=== PATIENT | female | born 1975 | race Caucasian/White ===

== ENCOUNTER 2017-01-02 20:05 | Emergency (ER) | payer SELFPAY ==
[~2017-01-02] VITALS: Ht 160 cm; Wt 62.0 kg
[2017-01-02 20:08] VITALS: BP 165/110; PULSE 87; RESP 16; TEMP 99.5; O2SAT 96
[2017-01-02 20:39] LABS: BLOOD, URINE LARGE (NEG); GLUCOSE,URINE NEG (NEG); KETONE, URINE NEG (NEG)
--- NOTE | 2017-01-02 20:41 | PD ---
HPI Chief Complaint: Complaint Time Seen by Provider: 20:33 Travel History International Travel<30 days: No Contact w/Intl Traveler<30days: No Traveled to known affect area: No History of Present Illness HPI This patient complains of dysuria and urinary frequency. She has some low back pain and subjective fever. He is concerned about having urinary infection. Symptoms severity is moderate. PFSH Past Medical History ?: Not LMP: NOW Social History Alcohol Use: No Tobacco Use: No Substance Use: No Allergies-Medications (Allergen,Severity, Reaction): Coded Allergies: No Known Allergies (Unverified , 01/02/17) Reported Meds & Prescriptions Reported Meds & Active Scripts Active No Active Prescriptions or Reported Medications Review of Systems General / Constitutional: Positive: Fever Cardiovascular: No: Chest Pain or Discomfort Respiratory: No: Cough Gastrointestinal: No: Vomiting Physical Exam Narrative GASTROINTESTINAL: Abdomen soft, non-tender, nondistended. Positive bowel sounds. No hepato-splenomegaly, or palpable masses. No guarding. SKIN: Inspection shows no rash or ulcers. Palpation shows no induration or nodules. Psych: Normal mood and affect. Normal insight and judgment. Data Data Last Documented VS Vital Signs Date Time Temp Pulse Resp B/P Pulse Ox O2 Delivery O2 Flow Rate FiO2 01/02/17 20:08 99.5 87 16 165/110 96 Orders Urinalysis - C+S If Indicated (01/02/17 20:09) Urine Culture (01/02/17 20:34) Labs Laboratory Tests Test 01/02/17 20:34 Urine Collection Type CLEAN CATCH Urine Color MARQUIS Urine Turbidity MOD Urine pH 6.0 Urine Specific [place] 1.013 Urine Protein 30 mg/dL Urine Glucose (UA) NEG mg/dL Urine Ketones NEG mg/dL Urine Occult Blood LARGE Urine Nitrite POS Urine Bilirubin NEG Urine Leukocyte Esterase MOD Urine RBC 25-49 /hpf Urine WBC 25-49 /hpf Urine WBC Clumps MANY Urine Squamous Epithelial 0-5 /hpf Cells Urine Bacteria FEW /hpf Urine Mucus OCC /lpf Microscopic Urinalysis Comment CULTURE INDICATED MDM Medical Decision Making Medical Screen Exam Complete: Yes Emergency Medical Condition: Yes Medical Record Reviewed: Yes Differential Diagnosis UTI, pyelonephritis, cystitis Narrative Course I have reviewed the patient's electronic medical record. Urinalysis is consistent with infection. Cipro prescribed. Diagnosis Primary Impression: Acute cystitis Qualified Code: N30.01 - Acute cystitis with hematuria Additional Instructions: The patient was advised to follow up with their physician and return if they worsen. Med/Other Pt SpecificInfo: Prescription(s) given Scripts Ciprofloxacin (Cipro)500 Mg Kaz511 Mg PO BID #10 TAB Ref 0 Prov:Jaun Alberto MD 01/02/17 Disposition: 01 DISCHARGE HOME Condition: Stable Jaun Alberto MD Jan 02, 2017 20:41
[2017-01-02 20:45] LABS: NITRITE,URINE POS (NEG)
[2017-01-02 20:46] LABS: METHOD OF COLLECTION CLEAN CATCH; URINE COLOR AMBER (YELLW/STRAW)
[2017-01-02 20:47] LABS: BACTERIA, URINE FEW /hpf; MUCUS URINE OCC /lpf (OCC); SQUAMOUS EPITHELIAL CELL URINE 0-5 /hpf (0-5)
[2017-01-02 20:48] LABS: COMMENT (UR) CULTURE INDICATED; CULTURE IF INDICATED CULTURE INDICATED
[2017-01-02] MEDS ORDERED: CIPR-9 PO (20:51)
== END 2017-01-02 20:15 | disposition home or self-care (01) ==
LOC: PHED 20:05
DX: N30.01 Acute cystitis with hematuria (principal); B96.20 Unspecified Escherichia coli [E. coli] as the cause of diseases classified elsewhere
CPT/HCPCS: 81001; 87077; 87086; 87186; 99283

== ENCOUNTER 2018-02-22 15:51 | Inpatient (IN) | payer SELFPAY ==
[2018-02-22] VITALS (23 sets, daily range): BP systolic 137–179; BP diastolic 81–107; PULSE 40–50; RESP 8–16; TEMP 97.6–97.7; O2SAT 95–100
[~2018-02-22 15:51] MED LIST: CIPR-9 PO
[2018-02-22] MEDS ORDERED: SUCCINYLCHOLINE CHLORIDE 200 MG/10 ML VIAL ONE (16:13)
[2018-02-22] MEDS ORDERED: ETOMIDATE 40 MG/20 ML VIAL ONE (16:13)
[2018-02-22] MEDS ORDERED: SODIUM CHLOR 0.9% 1000 ML INJ 1,000 ML IV ONE (16:20)
--- NOTE | 2018-02-22 16:29 | PD ---
HPI Chief Complaint: Altered Mental Status Time Seen by Provider: 16:04 Travel History International Travel<30 days: No Contact w/Intl Traveler<30days: No Traveled to known affect area: No History of Present Illness HPI The patient was seen and examined in the presence of the nurse. This patient is brought in by her boyfriend. She is unresponsive. She can provide no history or review of systems. Boyfriend does not know what happened to her. She has pinpoint pupils and respiratory rate of 6 with periods of apnea. She has visible track kirby on her arms. Boyfriend says there is no way she could' ve overdosed. She has taken recreational Lortab on occasion but he doesn't think she overdosed. She has some type of chronic pain syndrome. She also has psoriasis. Duration one hour. PFSH Past Medical History Diminished Hearing: No Tubal Ligation: Yes Past Surgical History Other Surgery: Yes (BREAST AGMENTATION ) Social History Alcohol Use: No Tobacco Use: No Substance Use: No Allergies-Medications (Allergen,Severity, Reaction): Coded Allergies: No Known Allergies (Unverified Adverse Reaction, Unknown, 02/22/18) Reported Meds & Prescriptions Reported Meds & Active Scripts Active No Active Prescriptions or Reported Medications Review of Systems ROS Limitations: Clinical Condition, Altered Mental Status, Unresponsive Physical Exam Narrative GENERAL: Well-nourished, well-developed patient who is unresponsive and having periods of apnea . SKIN: Focused skin assessment reveals linear kirby on the arms that look like track kriby. Skin is Warm and dry. HEAD: Atraumatic. Normocephalic. EYES: Pupils equal and pinpoint. No scleral icterus. No injection or drainage. ENT: No nasal bleeding or discharge. Mucous membranes pink and moist. NECK: Trachea midline. No JVD. CARDIOVASCULAR: Regular rate and rhythm. No murmur appreciated. Bradycardic at 45 RESPIRATORY: No accessory muscle use. Clear to auscultation. Breath sounds equal bilaterally. GASTROINTESTINAL: Abdomen soft, non-tender, nondistended. Hepatic and splenic margins not palpable. MUSCULOSKELETAL: No obvious deformities. No clubbing. No cyanosis. No edema. NEUROLOGICAL: Patient is unresponsive. She has no useful gag reflex. Impossible to test motor or sensory exam given her limited participation. She is nonverbal. PSYCHIATRIC: Impossible to test mood and affect; insight and judgment poor . Data Data Last Documented VS Vital Signs Date Time Temp Pulse Resp B/P (MAP) Pulse Ox O2 Delivery O2 Flow Rate FiO2 02/22/18 16:45 48 14 160/88 (112) 100 02/22/18 16:10 97.6 02/22/18 16:05 40 Orders Orders Etomidate Inj (Amidate Inj) (02/22/18 16:13) Succinylcholine Inj (Quelicin Inj) (02/22/18 16:13) Electrocardiogram (02/22/18 16:20) Complete Blood Count With Diff (02/22/18 16:20) Comprehensive Metabolic Panel (02/22/18 16:20) Urinalysis - C+S If Indicated (02/22/18 16:20) Chest, Single Ap (02/22/18 16:20) Ct Brain W/O Iv Contrast(Rout) (02/22/18 16:20) Arterial Blood Gas (Abg) (02/22/18 16:20) Iv Access Insert/Monitor (02/22/18 16:20) Ecg Monitoring (02/22/18 16:20) Oximetry (02/22/18 16:20) Veda-Gastric Tube Insert/Mon (02/22/18 16:20) Urinary Catheter Insert/Apply (02/22/18 16:20) Sodium Chloride 0.9% Flush (Ns Flush) (02/22/18 16:30) Sodium Chlor 0.9% 1000 Ml Inj (Ns 1000 M (02/22/18 16:20) Restraints Non-Violent ELIZABETH.Q3H (02/22/18 16:20) Drug Screen, Random Urine (02/22/18 16:20) Alcohol (Ethanol) (02/22/18 16:20) Salicylates (Aspirin) (02/22/18 16:20) Tylenol (Acetaminophen) (02/22/18 16:20) Propofol 1000 Mg/100 Ml Inj (Diprivan 10 (02/22/18 16:30) Ed Urine Pregnancytest Poc (02/22/18 16:20) Etomidate Inj (Amidate Inj) (02/22/18 16:30) Admit Order (Ed Use Only) (02/22/18 16:58) Labs Laboratory Tests Test 02/22/18 16:25 3/28/18 16:49 White Blood Count 5.9 TH/MM3 Red Blood Count 4.51 MIL/MM3 Hemoglobin 13.4 GM/DL Hematocrit 41.6 % Mean Corpuscular Volume 92.1 FL Mean Corpuscular Hemoglobin 29.6 PG Mean Corpuscular Hemoglobin Concent 32.1 % Red Cell Distribution Width 13.5 % Platelet Count 196 TH/MM3 Mean Platelet Volume 9.3 FL Neutrophils (%) (Auto) 61.6 % Lymphocytes (%) (Auto) 21.9 % Monocytes (%) (Auto) 14.5 % Eosinophils (%) (Auto) 1.5 % Basophils (%) (Auto) 0.5 % Neutrophils # (Auto) 3.7 TH/MM3 Lymphocytes # (Auto) 1.3 TH/MM3 Monocytes # (Auto) 0.9 TH/MM3 Eosinophils # (Auto) 0.1 TH/MM3 Basophils # (Auto) 0.0 TH/MM3 CBC Comment DIFF FINAL Differential Comment Urine Collection Type VOIDED Urine Color YELLOW Urine Turbidity CLEAR Urine pH 6.0 Urine Specific [place] 1.020 Urine Protein NEG mg/dL Urine Glucose (UA) NEG mg/dL Urine Ketones NEG mg/dL Urine Occult Blood NEG Urine Nitrite NEG Urine Bilirubin NEG Urine Urobilinogen 0.2 MG/DL Urine Leukocyte Esterase NEG Urine Squamous Epithelial Cells 0-3 /hpf Urine Mucus OCC /lpf Microscopic Urinalysis Comment CULT NOT INDICATED Blood Urea Nitrogen 7 MG/DL Creatinine 0.59 MG/DL Random Glucose 107 MG/DL Total Protein 8.1 GM/DL Albumin 3.3 GM/DL Calcium Level 8.6 MG/DL Alkaline Phosphatase 90 U/L Aspartate Amino Transf (AST/SGOT) 11 U/L Alanine Aminotransferase (ALT/SGPT) 15 U/L Total Bilirubin 0.4 MG/DL Sodium Level 142 MEQ/L Potassium Level 3.8 MEQ/L Chloride Level 112 MEQ/L Carbon Dioxide Level 26.7 MEQ/L Anion Gap 3 MEQ/L Estimat Glomerular Filtration Rate 111 ML/MIN Salicylates Level LESS THAN 1.7 MG/DL Urine Opiates Screen POS Acetaminophen Level LESS THAN 2.0 MCG/ML Urine Barbiturates Screen NEG Urine Amphetamines Screen NEG Urine Benzodiazepines Screen NEG Urine Cocaine Screen NEG Urine Cannabinoids Screen POS Ethyl Alcohol Level LESS THAN 3 MG/DL Blood Gas Puncture Site RT RADIAL Blood Gas Patient Temperature 37.0 Blood Gas HCO3 22 mmol/L Blood Gas Base Excess -3.1 mmol/L Blood Gas Oxygen Saturation 96 % Arterial Blood pH 7.34 Arterial Blood Partial Pressure CO2 41 mmHg Arterial Blood Partial Pressure O2 197 mmHg Arterial Blood Oxygen Content 17.9 Vol % Arterial Blood Carboxyhemoglobin 1.9 % Arterial Blood Methemoglobin 1.2 % Blood Gas Hemoglobin 12.9 G/DL Oxygen Delivery Device VENTILATOR Blood Gas Ventilator Setting 14/500/PEEP 5 Blood Gas Inspired Oxygen 40 % MDM Medical Decision Making Medical Screen Exam Complete: Yes Emergency Medical Condition: Yes Medical Record Reviewed: Yes Differential Diagnosis Narcotic overdose, accidental ingestion, intracranial hemorrhage Narrative Course I have reviewed the patient's electronic medical record. Patient was seen here last year for cystitis This patient arrives critically ill. She is apneic and bradycardic and unresponsive I suspect based on her pinpoint pupils and track kirby that she is a narcotic overdose She requires emergent intubation to control her airway and provide breaths INTUBATION: The patient was put in optimal position for the procedure. Rapid sequence intubation was initiated by me using 20 milligrams of etomidate IV. The patient was intubated with a 7.5 cuffed endotracheal tube. Tube placement was confirmed by visualization of the tube and balloon passing through the cords , capnometry and subsequent chest x-ray. Breath sounds were equal and well aerated bilaterally postintubation. No breath sounds over stomach. Patient tolerated procedure well. After intubation saturations are 100% and the pulse immediately went up to 75. I've ordered lab and urine studies and brain imaging X-ray shows good tube placement without pneumothorax CBC and metabolic profiles reasonably normal Urine is clean Alcohol negative Tox screen positive for narcotic and marijuana On recheck patient's blood pressure remains good I reviewed with the ladle repairman who will admit to intensive care on ventilator Critical Care Narrative Aggregate critical care time was 78 minutes. Time to perform other separately billable procedures was not included in the critical care time. My time did not include minutes spent treating any other patients simultaneously or on activities that did not directly contribute to the patient's treatment. The services I provided to this patient were to treat and/or prevent clinically significant deterioration that could result in: Loss of airway, aspiration, cardiopulmonary arrest, hypoxemic brain injury I provided critical care services requiring my management, as noted below: Chart data review, documentation time, medication orders and management, vital sign assessments/reviewing monitor data, ordering and reviewing lab tests, ordering and interpreting/reviewing x-rays and diagnostic studies, care of the patient and discussion of the patient with the admitting physicians. Diagnosis Primary Impression: Unresponsive state Additional Impressions: Airway compromise Narcotic overdose Qualified Codes: T40.604A - Poisoning by unspecified narcotics, undetermined, initial encounter Admitting Information Admitting Physician Requests: Admit Scripts No Active Prescriptions or Reported Meds Jaun Alberto MD Feb 22, 2018 16:29
[2018-02-22] MEDS ORDERED: SODIUM CHLORIDE 0.9% FLUSH 10 ML FLUSH IVF PRN (16:30)
[2018-02-22] MEDS ORDERED: ETOMIDATE 20 MG/10 ML VIAL IV PUSH ONE (16:30)
[2018-02-22 16:41] LABS: AUTOMATED NEUTROPHIL # 3.7 TH/MM3 (1.8-7.7); BASOPHIL % 0.5 % (0.0-2.0); EOSINOPHIL # 0.1 TH/MM3 (0-0.4); EOSINOPHIL % 1.5 % (0.0-4.0); HEMATOCRIT 41.6 % (35.0-46.0); HEMOGLOBIN 13.4 GM/DL (11.6-15.3); LYMPH % 21.9 % (9.0-44.0); LYMPHOCYTE # 1.3 TH/MM3 (1.0-4.8); MEAN CELL VOLUME 92.1 FL (80.0-100.0); MEAN CORPUSCULAR HEMOGLOBIN 29.6 PG (27.0-34.0); MEAN CORPUSCULAR HGB CONC 32.1 % (32.0-36.0); MEAN PLATELET VOLUME 9.3 FL (7.0-11.0); MONO % 14.5 % (0.0-8.0); MONOCYTE # 0.9 TH/MM3 (0-0.9); NEUT % 61.6 % (16.0-70.0); PLATELET COUNT 196 TH/MM3 (150-450); RED BLOOD COUNT 4.51 MIL/MM3 (4.00-5.30); RED CELL DISTRIBUTION WIDTH 13.5 % (11.6-17.2); WHITE BLOOD COUNT 5.9 TH/MM3 (4.0-11.0)
[2018-02-22 16:42] LABS: BILIRUBIN, URINE NEG (NEG); BLOOD, URINE NEG (NEG); GLUCOSE,URINE NEG (NEG); KETONE, URINE NEG (NEG); NITRITE,URINE NEG (NEG); URINE COLOR YELLOW (YELLW/STRAW); URINE LEUKOCYTE ESTERASE NEG (NEG)
--- NOTE | 2018-02-22 16:43 | RADRPT ---
EXAM DATE/TIME: 02/22/2018 16:24 [facility] COMPARISON: No previous studies available for comparison. INDICATIONS : Post intubation MEDICAL HISTORY : Unobtainable SURGICAL HISTORY : Unobtainable ENCOUNTER: Initial ACUITY: 1 day PAIN SCORE: Non-responsive. LOCATION: Bilateral chest FINDINGS: A single view of the chest demonstrates the lungs to be symmetrically aerated without evidence of mas s, infiltrate or effusion. The endotracheal tube appears to be in good position. There is no pneumot horax. The heart size is mildly enlarged.. Osseous structures are intact. CONCLUSION: 1. ET tube in good position. 2. No pneumothorax. Eyal Gilbert MD on February 22, 2018 at 16:40 Board Certified Radiologist. This report was verified electronically.
[2018-02-22] MEDS: PROPOFOL 1000 MG/100 ML INJ 100 ML IV PRN ×2 (16:49→23:57)
[2018-02-22 16:50] LABS: CHLORIDE 112 MEQ/L (98-107); SODIUM (NA) 142 MEQ/L (136-145)
[2018-02-22 16:53] LABS: CALCIUM 8.6 MG/DL (8.5-10.1)
[2018-02-22 16:54] LABS: ALBUMIN 3.3 GM/DL (3.4-5.0); BICARBONATE 26.7 MEQ/L (21.0-32.0); BLOOD UREA NITROGEN 7 MG/DL (7-18); GLUCOSE,RANDOM 107 MG/DL (74-106)
[2018-02-22 16:56] LABS: MUCUS URINE OCC /lpf (OCC); SQUAMOUS EPITHELIAL CELL URINE 0-3 /hpf (0-5)
[2018-02-22 16:57] LABS: ALT (GPT) 15 U/L (10-53); AST (GOT) 11 U/L (15-37); CREATININE 0.59 MG/DL (0.50-1.00); GLOMERULAR FILTRATION RATE 111 ML/MIN (>89)
[2018-02-22 16:58] LABS: TOTAL BILIRUBIN ADULT 0.4 MG/DL (0.2-1.0)
[2018-02-22 16:59] LABS: TOTAL PROTEIN 8.1 GM/DL (6.4-8.2)
[2018-02-22 17:00] LABS: ALKALINE PHOSPHATASE 90 U/L (45-117)
[2018-02-22] MEDS ORDERED: POTASSIUM CHLOR 40 MEQ PREMIX 100 ML IV PRN ×2 (17:45)
[2018-02-22] MEDS ORDERED: POTASSIUM PHOSPHATE MONOBASIC 500 MG TAB PO/TUBE PRN (17:45)
[2018-02-22] MEDS ORDERED: MULTIVITAMIN INJ 10 ML, THIAMINE INJ 100 MG, FOLIC ACID INJ 1 MG in SODIUM CHLOR 0.45% ... IV ONE ×2 (17:45→20:00)
[2018-02-22] MEDS ORDERED: hydrALAZINE HCL 20 MG/ML VIAL IV PUSH PRN (17:45)
[2018-02-22] MEDS ORDERED: MAGNESIUM OXIDE 400 MG TAB PO PRN (17:45)
[2018-02-22] MEDS ORDERED: MAGNESIUM HYDROXIDE SUSP 30 ML CUP PO PRN (17:45)
[2018-02-22] MEDS ORDERED: DEXTROSE 50% IN WATER 50 ML VIAL(D50) IV PUSH PRN (17:45)
[2018-02-22] MEDS ORDERED: CHLORHEXIDINE GLUCONATE 2 % 1 PACK (2 CLOTHS) TOP PRN (17:45)
[2018-02-22] MEDS ORDERED: BISACODYL 10 MG SUPP RECTAL PRN (17:45)
[2018-02-22] MEDS ORDERED: POTASSIUM PHOSPHATE MONOBASIC 500 MG TAB PO PRN (17:45)
[2018-02-22] MEDS ORDERED: POTASSIUM CHLORIDE 25 MEQ EFFERVESCENT TAB PO PRN (17:45)
[2018-02-22] MEDS ORDERED: MISCELLANEOUS NURSING INFORMATION XX SCH (17:45)
[2018-02-22] MEDS ORDERED: POTASSIUM CHLOR 20 MEQ PREMIX 100 ML IV PRN ×2 (17:45)
[2018-02-22] MEDS ORDERED: ONDANSETRON HCL 4 MG/2 ML VIAL IV PUSH PRN (17:45)
[2018-02-22] MEDS ORDERED: MAGNESIUM SULFATE INJ 2 GM in SODIUM CHLORIDE 0.9% INJ 96 ML IV PRN (17:45)
[2018-02-22] MEDS ORDERED: RESP: ALBUTEROL 2.5 MG/IPRATROPIUM 0.5 MG NEB (PRN) INH (17:45)
[2018-02-22] MEDS ORDERED: SODIUM PHOSPHATE INJ 30 MMOL in SODIUM CHLOR 0.9% 250 ML INJ 240 ML IV PRN (17:45)
[2018-02-22] MEDS ORDERED: LABETALOL HCL 100 MG/20 ML VIAL IV PUSH PRN (17:45)
[2018-02-22] MEDS ORDERED: POTASSIUM PHOSPHATE INJ 30 MMOL in SODIUM CHLOR 0.9% 250 ML INJ 250 ML IV PRN (17:45)
[2018-02-22] MEDS ORDERED: fentaNYL DRIP 250 ML IV PRN (17:45)
[2018-02-22] MEDS ORDERED: SENNOSIDES 8.6 MG TAB PO PRN (17:45)
[2018-02-22] MEDS ORDERED: MAGNESIUM SULFATE INJ 4 GM in SODIUM CHLORIDE 0.9% INJ 92 ML IV PRN (17:45)
[2018-02-22] MEDS ORDERED: LACTULOSE SYRUP 20 GM/30 ML CUP PO PRN (17:45)
--- NOTE | 2018-02-22 17:46 | HHI.HP ---
HPI Service Critical Care Medicine Primary Care Physician No Primary Care Physician Admission Diagnosis unresponsive,loss of airway,narcotic OD Diagnosis: Chief Complaint: altered mental status Travel History International Travel<30 Days: No Contact w/Intl Traveler <30 Da: No Traveled to Known Affected Are: No History of Present Illness This is a 42-year-old female with an unremarkable past medical history who presents with her boyfriend for severe altered mental status. When I evaluated the patient, along with the emergency department evaluated patient, the patient was obtunded and unable to answer additional questions, the remainder of the history is provided by the boyfriend. Per the boyfriend, she does not have any medical problems, except for an occasional anxiety, and except for an occasional muscle or joint pain for which she takes "recreational Lortab ". He also states that when she gets very anxious she also takes "recreational Xanax ". He states that yesterday she was smoking marijuana with him when she became acutely paranoid and agitated, but over a few hours became normal again. Today , he found her very altered and sought medical attention. In the emergency department, she was not protecting her airway, she was acutely obtunded and was emergently intubated by the emergency room physician. Urine drug screen is positive for cannabinoids and opiates. Her pupils are pinpoint. Her respiratory rate was less than 6. Her heart rate is less than 50. Her boyfriend vehemently denies any other toxic ingestion or illicit drug use. ROS is unobtainable. Review of Systems ROS Limitations: Clinical Condition, Intoxication, Intubated, Altered Mental Status, Unresponsive Past Family Social History Allergies: Coded Allergies: No Known Allergies (Unverified Adverse Reaction, Unknown, 02/22/18) Past Medical History Per her boyfriend, no significant past medical history Past Surgical History Her boyfriend, breast augmentation Reported Medications per her boyfriend: "recreational lortab" occasionally "recreational xanax" occasionally Active Ordered Medications See MAR Family History Unknown unobtainable secondary to clinical condition the patient Social History Per the boyfriend, negative for tobacco, positive for recreational marijuana use , positive for illicit opiates and benzo use. Physical Exam Vital Signs Vital Signs Date Time Temp Pulse Resp B/P (MAP) Pulse Ox O2 Delivery O2 Flow Rate FiO2 02/22/18 17:03 43 14 163/99 (120) 100 Ventilator 02/22/18 17:00 40 02/22/18 16:20 99 02/22/18 16:10 97.6 46 8 140/81 (100) 95 02/22/18 16:05 100 40 Physical Exam GENERAL: Middle-age appearing female, lying in bed, obtunded, intubated, unresponsive HEENT: Normocephalic. Atraumatic. Pupils 1 mm, equal, round, reactive. Mucous membranes are dry NECK: Trachea is midline. There is no JVD. CHEST: Equal chest rise. PRVC. 40% FiO2. CARDIOVASCULAR: Bradycardic rate in the 40s, regular rhythm. Blood pressures 160s over 90s. Appears sinus. ABDOMEN: Soft, nontender, nondistended. No guarding. MUSCULOSKELETAL: Pulses 2+. No peripheral edema. NEUROLOGICAL: RASS -3. Positive cough. Positive gag. Positive corneals. On my evaluation, the patient acutely sat up with a RASS +1, but remained CAM +. Did not follow commands. Briskly purposeful. Moves all extremities. Laboratory Laboratory Tests Test 02/22/18 16:25 02/22/18 16:49 White Blood Count 5.9 Red Blood Count 4.51 Hemoglobin 13.4 Hematocrit 41.6 Mean Corpuscular Volume 92.1 Mean Corpuscular Hemoglobin 29.6 Mean Corpuscular Hemoglobin Concent 32.1 Red Cell Distribution Width 13.5 Platelet Count 196 Mean Platelet Volume 9.3 Neutrophils (%) (Auto) 61.6 Lymphocytes (%) (Auto) 21.9 Monocytes (%) (Auto) 14.5 Eosinophils (%) (Auto) 1.5 Basophils (%) (Auto) 0.5 Neutrophils # (Auto) 3.7 Lymphocytes # (Auto) 1.3 Monocytes # (Auto) 0.9 Eosinophils # (Auto) 0.1 Basophils # (Auto) 0.0 CBC Comment DIFF FINAL Differential Comment Urine Collection Type VOIDED Urine Color YELLOW Urine Turbidity CLEAR Urine pH 6.0 Urine Specific [place] 1.020 Urine Protein NEG Urine Glucose (UA) NEG Urine Ketones NEG Urine Occult Blood NEG Urine Nitrite NEG Urine Bilirubin NEG Urine Urobilinogen 0.2 Urine Leukocyte Esterase NEG Urine Squamous Epithelial Cells 0-3 Urine Mucus OCC Microscopic Urinalysis Comment CULT NOT INDICATED Blood Urea Nitrogen 7 Creatinine 0.59 Random Glucose 107 Total Protein 8.1 Albumin 3.3 Calcium Level 8.6 Alkaline Phosphatase 90 Aspartate Amino Transf (AST/SGOT) 11 Alanine Aminotransferase (ALT/SGPT) 15 Total Bilirubin 0.4 Sodium Level 142 Potassium Level 3.8 Chloride Level 112 Carbon Dioxide Level 26.7 Anion Gap 3 Estimat Glomerular Filtration Rate 111 Urine Opiates Screen POS Urine Barbiturates Screen NEG Urine Amphetamines Screen NEG Urine Benzodiazepines Screen NEG Urine Cocaine Screen NEG Urine Cannabinoids Screen POS Ethyl Alcohol Level LESS THAN 3 Blood Gas Puncture Site RT RADIAL Blood Gas Patient Temperature 37.0 Blood Gas HCO3 22 Blood Gas Base Excess -3.1 Blood Gas Oxygen Saturation 96 Arterial Blood pH 7.34 Arterial Blood Partial Pressure CO2 41 Arterial Blood Partial Pressure O2 197 Arterial Blood Oxygen Content 17.9 Arterial Blood Carboxyhemoglobin 1.9 Arterial Blood Methemoglobin 1.2 Blood Gas Hemoglobin 12.9 Oxygen Delivery Device VENTILATOR Blood Gas Ventilator Setting 14/500/PEEP 5 Blood Gas Inspired Oxygen 40 Result Diagram: 02/22/18 1625 02/22/18 1625 Imaging Last Impressions Head CT 02/22/18 1620 Signed Impressions: Service Date/Time: Thursday, February 22, 2018 17:59 - CONCLUSION: Normal examination for a patient of this age. Eyal Gilbert MD Chest X-Ray 02/22/181619 Signed Impressions: Service Date/Time: Thursday, February 22, 2018 16:24 - CONCLUSION: 1. ET tube in good position. 2. No pneumothorax. MD Kayleigh Gann VTE Risk Assessment Caprini VTE Risk Assessment: Mod/High Risk (score >= 2) Caprini Risk Assessment Model Point Value = 1 Point Value = 2 Point Value = 3 Point Value = 5 Age 41-60 Minor surgery BMI > 25 kg/m2 Swollen legs Varicose veins or History of unexplained or recurrent spontaneous Oral contraceptives or hormone replacement Sepsis (< 1 month) Serious lung disease, including pneumonia (< 1 month) Abnormal pulmonary function Acute myocardial infarction Congestive heart failure (< 1 month) History of inflammatory bowel disease Medical patient at bed rest Age 61-74 Arthroscopic surgery Major open surgery (> 45 min) Laparoscopic surgery (> 45 min) Malignancy Confined to bed (> 72 hours) Immobilizing plaster cast Central venous access Age >= 75 History of VTE Family history of VTE Factor V Leiden Prothrombin [id number] Lupus anticoagulant Anticardiolipin antibodies Elevated serum homocysteine Heparin-induced thrombocytopenia Other congenital or acquired thrombophilia Stroke (< 1 month) Elective arthroplasty Hip, pelvis, or leg fracture Acute spinal cord injury (< 1 month) Prophylaxis Regimen Total Risk Factor Score Risk Level Prophylaxis Regimen 0-1 Low Early ambulation 2 Moderate Order ONE of the following: *Sequential Compression Device (SCD) *Heparin 5000 units SQ BID 3-4 Higher Order ONE of the following medications: *Heparin 5000 units SQ TID *Enoxaparin/Lovenox 40 mg SQ daily (WT < 150 kg, CrCl > 30 mL/min) *Enoxaparin/Lovenox 30 mg SQ daily (WT < 150 kg, CrCl > 10-29 mL/min) *Enoxaparin/Lovenox 30 mg SQ BID (WT < 150 kg, CrCl > 30 mL/min) AND/OR *Sequential Compression Device (SCD) 5 or more Highest Order ONE of the following medications: *Heparin 5000 units SQ TID (Preferred with Epidurals) *Enoxaparin/Lovenox 40 mg SQ daily (WT < 150 kg, CrCl > 30 mL/min) *Enoxaparin/Lovenox 30 mg SQ daily (WT < 150 kg, CrCl > 10-29 mL/min) *Enoxaparin/Lovenox 30 mg SQ BID (WT < 150 kg, CrCl > 30 mL/min) AND *Sequential Compression Device (SCD) Assessment and Plan Assessment and Plan Assessment: 42-year-old female with acute toxic encephalopathy and acute hypoxic and hypercarbic respiratory failure. By clinical history this is most likely overdose, and by toxidrome likely narcotic or opiate overdose given her bradypnea, myosis, bradycardia. Will admit to ICU and remained intubated with frequent neuro checks. Watch for signs of substance withdrawal. Remains critically ill with respiratory failure and acute encephalopathy. Plan by systems: Neurologic: Toxic encephalopathy Opiate abuse Benzodiazepine abuse Opiate overdose Frequent neuro checks Propofol and fentanyl for goal RASS -2 Watch for substance withdrawal IV thiamine CT brain 02/22: negative acute. Respiratory: Acute hypoxic and hypercarbic respiratory failure Vent bundle Head of bed elevated Nebs No weaning with mechanical ventilation until neurologic status improves Wean FiO2 for goal SPO2 greater than 90% Cardiovascular: Sinus bradycardia Likely opiate toxidrome Hemodynamically stable currently Monitor on telemetry Renal: Place Fowler -- Strict I/Os FEN/GI: Lactated Ringer's at 150 cc an hour IV multivitamin ICU electively protocol Daily BMP Place orogastric tube Start tube feeds Nutrition consult Heme/ID: No infectious etiology suspected this time Daily CBC Endocrine: Hyperglycemia of critical illness -- SSI, medium scale, every 6 Prophylaxis: GI Prophylaxis Pepcid DVT Prophylaxis -- SCDs Lovenox Lines: Peripheral IVs Fowler Dispo: Admit to ICU. Critically ill. This patient remains critically ill with one or more organ systems which are or may become a threat to life. I have spent in excess of 62 minutes discontinuously in the care and management of this patient. This time is exclusive of procedures, and includes, but is not limited to, evaluation of the patient, review of the medical record, discussions with family, consultants, nursing staff, or respiratory therapy, and documentation in the medical record. Akira Lopez MD Feb 22, 2018 17:46
--- NOTE | 2018-02-22 18:10 | RADRPT ---
EXAM DATE/TIME: 02/22/2018 17:59 [facility] COMPARISON: No previous studies available for comparison. INDICATIONS : Altered mental status, unresponsive. Possible overdose. RADIATION DOSE: 59.98 CTDIvol (mGy) MEDICAL HISTORY : Non-responsive. SURGICAL HISTORY : Non-responsive. ENCOUNTER: Initial ACUITY: 1 day PAIN SCALE: Non-responsive LOCATION: cranial TECHNIQUE: Multiple contiguous axial images were obtained of the head. Using automated exposure control and adj ustment of the mA and/or kV according to patient size, radiation dose was kept as low as reasonably a chievable to obtain optimal diagnostic quality images. DICOM format image data is available electro nically for review and comparison. FINDINGS: CEREBRUM: The ventricles are normal for age. No evidence of midline shift, mass lesion, hemorrhage or acute in farction. No extra-axial fluid collections are seen. POSTERIOR FOSSA: The cerebellum and brainstem are intact. The 4th ventricle is midline. The cerebellopontine angle i s unremarkable. EXTRACRANIAL: The visualized portion of the orbits is intact. SKULL: The calvaria is intact. No evidence of skull fracture. CONCLUSION: Normal examination for a patient of this age. Eyal Gilbert MD on February 22, 2018 at 18:08 Board Certified Radiologist. This report was verified electronically.
[2018-02-22 18:21] LABS: ACETAMINOPHEN LESS THAN 2.0 MCG/ML (10.0-30.0)
[2018-02-22] MEDS: INSULIN NovoLIN REGULAR SUPPLEMENTAL SCALE SQ SCH ×2 (19:15→23:44)
[2018-02-22] MEDS: LACTATED RINGER'S 1000 ML INJ 1,000 ML IV SCH (20:14)
[2018-02-22] MEDS: DOCUSATE SODIUM 50 MG/SENNA 8.6 MG TAB PO SCH (20:26)
[2018-02-22] MEDS: ENOXAPARIN SODIUM 40 MG/0.4 ML SYRINGE SQ SCH (20:26)
[2018-02-22] MEDS: CHLORHEXIDINE 0.12% (ORAL KIT) 15 ML CUP MT SCH (20:30)
[2018-02-22] MEDS ORDERED: FAMOTIDINE 20 MG/2 ML VIAL IV PUSH SCH (21:00)
[2018-02-22] MEDS: RESP: ALBUTEROL 2.5 MG/IPRATROPIUM 0.5 MG NEB (SCH) INH (21:56)
[2018-02-23] VITALS (41 sets, daily range): BP systolic 96–195; BP diastolic 64–112; PULSE 44–92; RESP 14–33; TEMP 98.5–99.1; O2SAT 95–100
[2018-02-23] MEDS: LACTATED RINGER'S 1000 ML INJ 1,000 ML IV SCH ×2 (00:25→07:43)
[2018-02-23] MEDS: RESP: ALBUTEROL 2.5 MG/IPRATROPIUM 0.5 MG NEB (SCH) INH (03:18)
[2018-02-23] MEDS: CHLORHEXIDINE GLUCONATE 2 % 1 PACK (2 CLOTHS) TOP SCH (03:52)
[2018-02-23] MEDS: THIAMINE INJ 100 MG in SODIUM CHLORIDE 0.9% INJ 100 ML IV SCH (03:52)
[2018-02-23 04:47] LABS: HEMOGLOBIN 11.9 GM/DL (11.6-15.3); MEAN CELL VOLUME 90.8 FL (80.0-100.0); MEAN CORPUSCULAR HEMOGLOBIN 30.1 PG (27.0-34.0); MEAN CORPUSCULAR HGB CONC 33.1 % (32.0-36.0); MEAN PLATELET VOLUME 9.1 FL (7.0-11.0); PLATELET COUNT 165 TH/MM3 (150-450); RED BLOOD COUNT 3.97 MIL/MM3 (4.00-5.30); WHITE BLOOD COUNT 6.3 TH/MM3 (4.0-11.0)
[2018-02-23 04:59] LABS: BICARBONATE 23.8 MEQ/L (21.0-32.0); CALCIUM 7.9 MG/DL (8.5-10.1)
[2018-02-23 05:03] LABS: CREATININE 0.66 MG/DL (0.50-1.00)
[2018-02-23] MEDS: INSULIN NovoLIN REGULAR SUPPLEMENTAL SCALE SQ SCH ×2 (06:00→12:00)
--- NOTE | 2018-02-23 06:37 | HHI.CCPN ---
Subjective Remarks/Hospital Course Hospital Course: This is a 42-year-old female with an unremarkable past medical history who presents with her boyfriend for severe altered mental status. When I evaluated the patient, along with the emergency department evaluated patient, the patient was obtunded and unable to answer additional questions, the remainder of the history is provided by the boyfriend. Per the boyfriend, she does not have any medical problems, except for an occasional anxiety, and except for an occasional muscle or joint pain for which she takes "recreational Lortab ". He also states that when she gets very anxious she also takes "recreational Xanax ". He states that yesterday she was smoking marijuana with him when she became acutely paranoid and agitated, but over a few hours became normal again. Today , he found her very altered and sought medical attention. In the emergency department, she was not protecting her airway, she was acutely obtunded and was emergently intubated by the emergency room physician. Urine drug screen is positive for cannabinoids and opiates. Her pupils are pinpoint. Her respiratory rate was less than 6. Her heart rate is less than 50. Her boyfriend vehemently denies any other toxic ingestion or illicit drug use. ROS is unobtainable. Subjective: 02/23: remains encephalopathic. not following commands. on sedation vacation she moves all extremities spontaneously, opens eyes, tracks. afebrile with normal white blood cell count. no nuchal rigidity. Objective Vital Signs Date Time Temp Pulse Resp B/P (MAP) Pulse Ox O2 Delivery O2 Flow Rate FiO2 02/23/18 06:00 44 14 96/64 (75) 100 02/23/18 04:45 30 02/23/18 04:00 98.5 02/22/18 17:50 Ventilator Intake and Output 02/23/18 02/23/18 02/24/18 08:00 16:00 00:00 Intake Total 1424.2 ml Output Total 300 ml Balance 1124.2 ml Result Diagram: 02/23/18 0435 02/23/18 0435 Other Results Laboratory Tests Test 02/22/18 16:49 Blood Gas Puncture Site RT RADIAL Blood Gas Patient Temperature 37.0 Blood Gas HCO3 22 mmol/L (22-26) Blood Gas Base Excess -3.1 mmol/L (-2-2) Blood Gas Oxygen Saturation 96 % (90-100) Arterial Blood pH 7.34 (7.380-7.420) Arterial Blood Partial Pressure CO2 41 mmHg (38-42) Arterial Blood Partial Pressure O2 197 mmHg (61-120) Arterial Blood Oxygen Content 17.9 Vol % (12.0-20.0) Arterial Blood Carboxyhemoglobin 1.9 % (0-4) Arterial Blood Methemoglobin 1.2 % (0-2) Blood Gas Hemoglobin 12.9 G/DL (12.0-16.0) Oxygen Delivery Device VENTILATOR Blood Gas Ventilator Setting 14/500/PEEP 5 Blood Gas Inspired Oxygen 40 % Imaging Last Impressions Head CT 02/22/18 162 Signed Impressions: Service Date/Time: Thursday, February 22, 2018 17:59 - CONCLUSION: Normal examination for a patient of this age. Eyal Gilbert MD Chest X-Ray 02/22/181619 Signed Impressions: Service Date/Time: Thursday, February 22, 2018 16:24 - CONCLUSION: 1. ET tube in good position. 2. No pneumothorax. Eyal Gilbert MD Objective Remarks GENERAL: Middle-age appearing female, lying in bed, intubated, encephalopathic HEENT: Normocephalic. Atraumatic. Pupils 3 mm, equal, round, reactive. Mucous membranes are moist NECK: Trachea is midline. There is no JVD. CHEST: Equal chest rise. PRVC. 30% FiO2. CARDIOVASCULAR: Bradycardic rate in the 40s, regular rhythm. Blood pressures 160s. sinus ABDOMEN: Soft, nontender, nondistended. No guarding. MUSCULOSKELETAL: Pulses 2+. No peripheral edema. NEUROLOGICAL: RASS -2. Positive cough. Positive gag. Positive corneals. patient sits up, coughs, looks around room. does not follow commands. Briskly purposeful. Moves all extremities. A/P Assessment and Plan Assessment: 42-year-old female with acute toxic encephalopathy and acute hypoxic and hypercarbic respiratory failure. By clinical history this is most likely overdose, and by toxidrome likely narcotic or opiate overdose given her bradypnea, myosis, bradycardia. continue in ICU. remains critically ill and off pathway. will continue spontaneous breathing trials and spontaneous awakening trials until encephalopathy improves. if no improvement today, may need to pursue EEG, MRI. Plan by systems: Neurologic: Toxic encephalopathy Opiate abuse Benzodiazepine abuse Opiate overdose Frequent neuro checks Propofol and fentanyl for goal RASS -2 Watch for substance withdrawal IV thiamine CT brain 02/22: negative acute. daily sedation vacations Respiratory: Acute hypoxic and hypercarbic respiratory failure Vent bundle Head of bed elevated Nebs daily SBTs Wean FiO2 for goal SPO2 greater than 90% Cardiovascular: Sinus bradycardia Likely opiate toxidrome Hemodynamically stable currently Monitor on telemetry Renal: Place Fowler -- Strict I/Os FEN/GI: Lactated Ringer's at 150 cc an hour IV multivitamin ICU electrolyte protocol Daily BMP Tube feeds Nutrition consult Heme/ID: No infectious etiology suspected this time Daily CBC Endocrine: Hyperglycemia of critical illness -- SSI, medium scale, every 6 Prophylaxis: GI Prophylaxis Pepcid DVT Prophylaxis -- SCDs Lovenox Lines: Peripheral IVs Fowler Dispo: remain in ICU. Critically ill. This patient remains critically ill with one or more organ systems which are or may become a threat to life. I have spent in excess of 36 minutes discontinuously in the care and management of this patient. This time is exclusive of procedures, and includes, but is not limited to, evaluation of the patient, review of the medical record, discussions with family, consultants, nursing staff, or respiratory therapy, and documentation in the medical record. Akira Lopez MD Feb 23, 2018 06:37
[2018-02-23] MEDS: DOCUSATE SODIUM 50 MG/SENNA 8.6 MG TAB PO SCH ×2 (07:38→21:00)
[2018-02-23] MEDS: MULTIVITAMIN TAB PO SCH (07:38)
[2018-02-23] MEDS: CHLORHEXIDINE 0.12% (ORAL KIT) 15 ML CUP MT SCH ×2 (07:43→20:00)
--- NOTE | 2018-02-23 12:21 | EKG ---
Date Performed: 02/22/2018 Time Performed: 15:58:46 PTAGE: 42 years EKG: SINUS BRADYCARDIA BORDERLINE ECG NO PREVIOUS TRACING DOCTOR: George Brizuela Interpretating Date/Time 02/23/2018 12:17:20
[2018-02-23] MEDS ORDERED: ACETAMINOPHEN 500 MG CPLT PO PRN (13:45)
[2018-02-23] MEDS ORDERED: diphenhydrAMINE HCL ELIXIR 12.5 MG/5 ML CUP PO PRN (19:45)
[2018-02-23] MEDS: ENOXAPARIN SODIUM 40 MG/0.4 ML SYRINGE SQ SCH (20:39)
[2018-02-24] VITALS: BP 145/91; PULSE 70; RESP 36; TEMP 98.3; O2SAT 97
[2018-02-24] MEDS ORDERED: ACETAMINOPHEN 325 MG TAB PO PRN (01:00)
[2018-02-24] MEDS: THIAMINE INJ 100 MG in SODIUM CHLORIDE 0.9% INJ 100 ML IV SCH (02:58)
[2018-02-24] MEDS: CHLORHEXIDINE GLUCONATE 2 % 1 PACK (2 CLOTHS) TOP SCH (02:58)
[2018-02-24 04:00] VITALS: BP 135/88; PULSE 78; RESP 26; TEMP 98.4; O2SAT 99
[2018-02-24 05:03] LABS: HEMATOCRIT 39.1 % (35.0-46.0); HEMOGLOBIN 12.8 GM/DL (11.6-15.3); MEAN CELL VOLUME 91.1 FL (80.0-100.0); MEAN CORPUSCULAR HEMOGLOBIN 29.9 PG (27.0-34.0); MEAN CORPUSCULAR HGB CONC 32.8 % (32.0-36.0); MEAN PLATELET VOLUME 8.6 FL (7.0-11.0); PLATELET COUNT 189 TH/MM3 (150-450); RED BLOOD COUNT 4.29 MIL/MM3 (4.00-5.30); WHITE BLOOD COUNT 7.5 TH/MM3 (4.0-11.0)
[2018-02-24 05:14] LABS: BICARBONATE 26.2 MEQ/L (21.0-32.0); CALCIUM 8.1 MG/DL (8.5-10.1)
[2018-02-24 05:18] LABS: CREATININE 0.56 MG/DL (0.50-1.00)
[2018-02-24] MEDS ORDERED: POTASSIUM CHLORIDE 25 MEQ EFFERVESCENT TAB PO ONE (07:00)
[2018-02-24] MEDS: DOCUSATE SODIUM 50 MG/SENNA 8.6 MG TAB PO SCH (07:15)
[2018-02-24] MEDS: CHLORHEXIDINE 0.12% (ORAL KIT) 15 ML CUP MT SCH (07:38)
[2018-02-24] MEDS: MULTIVITAMIN TAB PO SCH (07:38)
[2018-02-24 07:47] VITALS: BP 138/64; PULSE 86; TEMP 97.7
[2018-02-24] MEDS ORDERED: POTASSIUM CHLORIDE 10 MEQ CONTROLLED RELEASE TAB PO ONE (09:00)
[2018-02-24 12:23] VITALS: BP 148/64; PULSE 71; TEMP 98
[2018-02-24] MEDS ORDERED: POTA-163 PO (13:39)
--- NOTE | 2018-02-24 14:11 | HHI.DS ---
Discharge Summary Admission Date Feb 22, 2018 at 16:59 Discharge Date: Feb 24, 2018 Admitting Diagnosis unresponsive,loss of airway,narcotic OD (1) Unresponsive state ICD Code: R41.89 - Other symptoms and signs involving cognitive functions and awareness Diagnosis: Principal Status: Acute (2) Airway compromise ICD Code: J98.8 - Other specified respiratory disorders Diagnosis: Principal Status: Acute (3) Narcotic overdose ICD Code: T40.601A - Poisoning by unspecified narcotics, accidental ( unintentional), initial encounter Diagnosis: Principal Status: Acute Procedures Intubation/extubation Brief History - From Admission This is a 42-year-old female with an unremarkable past medical history who presents with her boyfriend for severe altered mental status. When I evaluated the patient, along with the emergency department evaluated patient, the patient was obtunded and unable to answer additional questions, the remainder of the history is provided by the boyfriend. Per the boyfriend, she does not have any medical problems, except for an occasional anxiety, and except for an occasional muscle or joint pain for which she takes "recreational Lortab ". He also states that when she gets very anxious she also takes "recreational Xanax ". He states that yesterday she was smoking marijuana with him when she became acutely paranoid and agitated, but over a few hours became normal again. Today , he found her very altered and sought medical attention. In the emergency department, she was not protecting her airway, she was acutely obtunded and was emergently intubated by the emergency room physician. Urine drug screen is positive for cannabinoids and opiates. Her pupils are pinpoint. Her respiratory rate was less than 6. Her heart rate is less than 50. Her boyfriend vehemently denies any other toxic ingestion or illicit drug use. ROS is unobtainable. CBC/BMP: 02/24/18 0455 02/24/18 1230 Significant Findings Laboratory Tests Test 02/22/18 16:25 02/22/18 16:49 02/22/18 18:26 02/23/18 04:35 Monocytes (%) (Auto) 14.5 % (0.0-8.0) Random Glucose 107 MG/DL (74-106) Albumin 3.3 GM/DL (3.4-5.0) Aspartate Amino Transf (AST/SGOT) 11 U/L (15-37) Chloride Level 112 MEQ/L (98-107) 114 MEQ/L (98-107) Anion Gap 3 MEQ/L (5-15) Salicylates Level LESS THAN 1.7 MG/DL Urine Opiates Screen POS (NEG) Acetaminophen Level LESS THAN 2.0 MCG/ML Urine Cannabinoids Screen POS (NEG) Blood Gas Base Excess -3.1 mmol/L (-2-2) Arterial Blood pH 7.34 (7.380-7.420) Arterial Blood Partial Pressure O2 197 mmHg (61-120) Red Blood Count 3.97 MIL/MM3 (4.00-5.30) Calcium Level 7.9 MG/DL (8.5-10.1) Potassium Level 3.3 MEQ/L (3.5-5.1) Test 02/24/18 04:55 02/24/18 12:30 Calcium Level 8.1 MG/DL (8.5-10.1) Potassium Level 3.2 MEQ/L (3.5-5.1) 3.4 MEQ/L (3.5-5.1) Hospital Course Mrs. Martin is a 42-year-old female. She was admitted secondary to respiratory failure related to intentional recreational opioid overdose. She had to be intubated and remained on the vent for the first day. She has been doing well since extubation. Potassium levels are low but she has otherwise returned to baseline. Potassium has been replaced and she is medically cleared and stable for discharge to home today. Pt Condition on Discharge: Stable Discharge Disposition: Discharge Home Discharge Time: <= 30 minutes Discharge Instructions DIET: Follow Instructions for: As Tolerated, No Restrictions Activities you can perform: Regular-No Restrictions Follow up Referrals: PCP Follow-up - As Per Protocol New Medications: Potassium Chloride ER (Potassium Chloride ER) 20 Meq Tab 20 MEQ PO DAILY for Electrolyte Replacement, #4 TAB 0 Refills Finn Eric MD Feb 24, 2018 14:11
[2018-02-26] MEDS ORDERED: THIAMINE HCL 100 MG TAB PO SCH (09:00)
== END 2018-02-24 14:23 | disposition home or self-care (01) | DRG 917 ==
LOC: PHED 15:51 → PHEDA 16:59 → PHICU 18:11
PROVIDERS: ADMIT Hospitalist; ATTEND Hospitalist
PROC: 5A1935Z Respiratory Ventilation, Less than 24 Consecutive Hours (ICD-10-PCS; principal; 2018-02-22)
PROC: 0BH17EZ Insertion of Endotracheal Airway into Trachea, Via Natural or Artificial Opening (ICD-10-PCS; 2018-02-22)
DX: T40.601A Poisoning by unspecified narcotics, accidental (unintentional), initial encounter (principal); G92 Toxic encephalopathy; J96.01 Acute respiratory failure with hypoxia; J96.02 Acute respiratory failure with hypercapnia; F11.10 Opioid abuse, uncomplicated; F12.90 Cannabis use, unspecified, uncomplicated; R41.82 Altered mental status, unspecified; F13.10 Sedative, hypnotic or anxiolytic abuse, uncomplicated; R00.1 Bradycardia, unspecified; R73.9 Hyperglycemia, unspecified
CPT/HCPCS: 31500; 36600; 51702; 70450; 71045; 80048; 80053; 80307; 81001; 82805; 82948; 84132; 84703; 85025; 85027; 87641; 93005; 94002; 94003; 94150; 94640; 94664; 94667; 94668; 96361; 96374; 99292; J0330; J0360; J1650; J2405; J3010; J3411; J3480; J7030; J7120